=== PATIENT | male | born 1960 | race Caucasian/White ===

== ENCOUNTER 2020-11-04 12:03 | Inpatient (IN) | payer BC ==
[2020-11-04 13:18] LABS: Absolute Lymphocytes (CBC) 1.3 K/uL (0.7-4.9); Basophils % 0.8 % (0-1.3); Hematocrit 46.4 % (39.6-49.0); Lymphocytes % 14.2 % (15.3-44.8); MPV 8.9 fL (7.6-11.3); RBC Red Blood Cell Count 5.18 M/uL (4.33-5.43)
[2020-11-04] MEDS ORDERED: METOPROLOL TAR 50 MG TAB ONE (13:34)
[2020-11-04 13:53] LABS: Albumin 3.7 g/dL (3.4-5.0); Bilirubin Direct 0.5 mg/dL (0-0.2); Bilirubin Total 1.9 mg/dL (0.2-1.0); Magnesium 1.9 mg/dL (1.8-2.4); Potassium 4.3 mmol/L (3.5-5.1); Protein, Total 6.8 g/dL (6.4-8.2); Troponin (Emerg Dept Use Only) 0.05 ng/mL (0.0-0.045)
--- NOTE | 2020-11-04 13:57 | RAD REPORT ---
EXAM DESCRIPTION: [place] Single View11/04/2020 1:48 pm CLINICAL HISTORY: Cough COMPARISON: none FINDINGS: Upper lobe vessels are prominent indicative of pulmonary venous hypertension. Lungs appear clear of acute infiltrate. Moderate to marked cardiomegaly
--- NOTE | 2020-11-04 14:38 | ER ---
Nurse's Notes [facility] Name: Ac Jackson Age: 60 yrs Sex: Male : 1960 Arrival Date: 11/04/2020 Time: 12:07 Bed 25 Private MD: Diagnosis: Unspecified combined systolic (congestive) and diastolic (congestive) heart failure;Pulmonary Hypertension;Dyspnea, unspecified;Persistent atrial fibrillation-with RVR Presentation: 11/04 12:11 Chief complaint: Patient states: Noticed SOB when laying flat at night off/on for 2 ll1 months. Awakes him suddenly out of sleep, gasping for air. States he had a fall 2+ months ago, believes he cracked some ribs on the L side. Coronavirus screen: Client denies travel out of the [place] in the last 14 days. cough unrelated to allergies, difficulty breathing, shortness of breath, Client presents with at least one sign or symptom that may indicate coronavirus-19. Standard/surgical mask placed on the client. Ebola Screen: Patient denies travel to an Ebola-affected area in the 21 days before illness onset. Initial Sepsis Screen: Does the patient meet any 2 criteria? No. Patient's initial sepsis screen is negative. Does the patient have a suspected source of infection? Yes: Productive cough/pneumonia. Risk Assessment: Do you want to hurt yourself or someone else? Patient reports no desire to harm self or others. Onset of symptoms was September 04, 2020. 12:11 Method Of Arrival: Ambulatory ll1 12:11 Acuity: ANA CRISTINA 3 ll1 Historical: - Allergies: 12:15 PENICILLINS; ll1 - PMHx: 12:15 Hypertension; A fib; low blood sugar; ll1 - PSHx: 12:15 L total knee; cataract; ll1 - Immunization history:: Flu vaccine is not up to date. - Social history:: Smoking status: Patient reports use of chewing tobacco. Patient denies any tobacco usage or history of. - Family history:: not pertinent. - Hospitalizations: : No recent hospitalization is reported. Screenin:21 Abuse screen: Denies threats or abuse. Nutritional screening: No deficits noted. vg1 Tuberculosis screening: No symptoms or risk factors identified. Fall Risk No fall in past 12 months (0 pts). No secondary diagnosis (0 pts). IV access (20 points). Ambulatory Aid- None/Bed Rest/Nurse Assist (0 pts). Gait- Normal/Bed Rest/Wheelchair (0 pts) Mental Status- Oriented to own ability (0 pts). Total Roque Fall Scale indicates No Risk (0-24 pts). Assessment: 12:55 General: Appears in no apparent distress. comfortable, Behavior is calm, cooperative. vg1 Pain: Denies pain. Neuro: Level of Consciousness is awake, alert, obeys commands, Oriented to person, place, time, situation. Cardiovascular: Rhythm is sinus tachycardia. Respiratory: Airway is patent Respiratory effort is even, unlabored, Respiratory pattern is regular, symmetrical, Breath sounds are clear bilaterally. GI: No signs and/or symptoms were reported involving the gastrointestinal system. : No signs and/or symptoms were reported regarding the genitourinary system. EENT: No signs and/or symptoms were reported regarding the EENT system. Derm: Skin is intact, is healthy with good turgor. Musculoskeletal: Circulation, motion, and sensation intact. 15:39 Reassessment: Patient appears in no apparent distress at this time. No changes from vg1 previously documented assessment. Patient and/or family updated on plan of care and expected duration. Pain level reassessed. Patient is alert, oriented x 3, equal unlabored respirations, skin warm/dry/pink. 19:57 Reassessment: attempted to call report. vg1 Vital Signs: 12:11 BP 141 / 100; Pulse 87; Resp 17; Temp 97.3; Pulse Ox 97% on R/A; Weight 126.1 kg; ll1 Height 6 ft. 2 in. (187.96 cm); Pain 4/10; 13:20 BP 115 / 90; Pulse 120; Resp 14; Pulse Ox 96% on R/A; vg1 14:00 BP 117 / 99; Pulse 120; Resp 14; Pulse Ox 96% on R/A; vg1 15:45 BP 111 / 83; Pulse 95; Resp 16; Pulse Ox 100% on R/A; vg1 15:45 BP 119 / 86; Pulse 108; Resp 16; Pulse Ox 98% on R/A; vg1 18:00 BP 109 / 86; Pulse 92; Resp 16; Pulse Ox 98% on R/A; vg1 19:17 BP 114 / 98; Pulse 86; Resp 22; Pulse Ox 98% on R/A; vg1 12:11 Body Mass Index 35.69 (126.10 kg, 187.96 cm) ll1 ED Course: 12:07 Patient arrived in ED. ds1 12:13 Triage completed. ll1 12:15 Arm band placed on Patient placed in an exam room, on a stretcher. ll1 12:33 Holland Dsouza MD is Attending Physician. rn 12:51 Saira Parr RN is Primary Nurse. vg1 13:05 Inserted saline lock: 20 gauge in right antecubital area, using aseptic technique. vg1 Blood collected. 13:21 Patient has correct armband on for positive identification. Bed in low position. Call vg1 light in reach. Side rails up X 1. 13:48 XRAY Chest (1 view) In Process Unspecified. EDMS 13:55 X-ray completed. Portable x-ray completed in exam room. Patient tolerated procedure sw well. 14:37 Valentina Laurent MD is Hospitalizing Provider. rn 19:14 Primary Nurse role handed off by Saira Parr RN mw2 19:17 Saira Parr RN is Primary Nurse. vg1 20:19 No provider procedures requiring assistance completed. Patient admitted, IV remains in vg1 place. Administered Medications: 13:18 Drug: Metoprolol TARTRATE (Lopressor) 50 mg Route: PO; ss 14:00 Follow up: BP 117 / 99; Pulse 120 bpm; Resp 14 bpm; Pulse Ox 96% RA; Response: No vg1 adverse reaction 14:42 Drug: Metoprolol 25 mg Route: PO; vg1 15:45 Follow up: BP 111 / 83; Pulse 95 bpm; Resp 16 bpm; Pulse Ox 100% RA vg1 14:43 Drug: Lasix 40 mg Route: IVP; Site: right antecubital; vg1 15:45 Follow up: Response: No adverse reaction vg1 Intake: 15:46 PO: 230ml (Water); Total: 230ml. vg1 17:10 PO: 237ml (Soft Drink); Total: 467ml. vg1 Output: 14:00 Urine: 400ml (Voided); Total: 400ml. vg1 15:44 Urine: 300ml (Voided); Total: 700ml. vg1 16:30 Urine: 300ml (Voided); Total: 1000ml. vg1 17:10 Urine: 300ml (Voided); Total: 1300ml. vg1 Outcome: 14:37 Decision to Hospitalize by Provider. rn 20:19 Admitted to Tele accompanied by tech, via wheelchair, room 206, with chart, Report vg1 called to DARA Bejarano 20:19 Condition: stable 20:19 Instructed on the need for admit. 20:47 Patient left the ED. vg1 Signatures: Dispatcher [employer] EDUT Irma Garcia ds1 Holland Dsouza MD MD rn Smirch, Shelby RN RN Lucy Harris MyKena mw2 Saira Parr RN RN vg1 Isaiah Coronado RN RN ll1
--- NOTE | 2020-11-04 14:39 | EDPHYS ---
Physician Documentation [facility] Name: Ac Jackson Age: 60 yrs Sex: Male : 1960 Arrival Date: 11/04/2020 Time: 12:07 Bed 25 Private MD: ED Physician Holland Dsouza HPI: 11/04 12:56 This 60 yrs old Male presents to ER via Ambulatory with complaints of rn Shortness Of Breath. 12:56 The patient has shortness of breath at rest, with light activity. Onset: The rn symptoms/episode began/occurred 2 month(s) ago. Duration: The symptoms are intermittent. The patient's shortness of breath is aggravated by exertion, light activity, supine position, talking, walking. Associated signs and symptoms: Pertinent positives: non-productive cough, Pertinent negatives: diaphoresis, fever, hemoptysis. Severity of symptoms: At their worst the symptoms were mild in the emergency department the symptoms are unchanged. The patient has not experienced similar symptoms in the past. The patient has not recently seen a physician. Historical: - Allergies: 12:15 PENICILLINS; ll1 - PMHx: 12:15 Hypertension; A fib; low blood sugar; ll1 - PSHx: 12:15 L total knee; cataract; ll1 - Immunization history:: Flu vaccine is not up to date. - Social history:: Smoking status: Patient reports use of chewing tobacco. Patient denies any tobacco usage or history of. - Family history:: not pertinent. - Hospitalizations: : No recent hospitalization is reported. ROS: 12:56 Constitutional: Negative for fever, chills, and weight loss, Eyes: Negative for injury, rn pain, redness, and discharge, Neck: Negative for injury, pain, and swelling, Cardiovascular: Negative for chest pain, palpitations, and edema, Respiratory: Negative for wheezing, and pleuritic chest pain, Abdomen/GI: Negative for abdominal pain, nausea, vomiting, diarrhea, and constipation, Back: Negative for injury and pain, MS/Extremity: Negative for injury and deformity, Skin: Negative for injury, rash, and discoloration, Neuro: Negative for headache, weakness, numbness, tingling, and seizure. 12:58 All other systems are negative. rn Exam: 12:56 Constitutional: This is a well developed, well nourished patient who is awake, alert, rn and in no acute distress. Head/Face: Normocephalic, atraumatic. Eyes: Periorbital areas with no swelling, redness, or edema. Cardiovascular: Irregular rhythm,tachycardic. No pulse deficits. Respiratory: Speaking full sentences. No increased work of breathing, no retractions or nasal flaring. Abdomen/GI: soft, non-tender Skin: Warm, dry with normal turgor. Normal color with no rashes, no lesions, and no evidence of cellulitis. MS/ Extremity: Pulses equal, no cyanosis. Neurovascular intact. Full, normal range of motion. Equal circumference. Neuro: Awake and alert, GCS 15, oriented to person, place, time, and situation. Cranial nerves II-XII grossly intact. Motor strength 5/5 in all extremities. Sensory grossly intact. Cerebellar exam normal. Normal gait. 16:14 ECG was reviewed by the Attending Physician. rn Vital Signs: 12:11 BP 141 / 100; Pulse 87; Resp 17; Temp 97.3; Pulse Ox 97% on R/A; Weight 126.1 kg; ll1 Height 6 ft. 2 in. (187.96 cm); Pain 4/10; 13:20 BP 115 / 90; Pulse 120; Resp 14; Pulse Ox 96% on R/A; vg1 14:00 BP 117 / 99; Pulse 120; Resp 14; Pulse Ox 96% on R/A; vg1 15:45 BP 111 / 83; Pulse 95; Resp 16; Pulse Ox 100% on R/A; vg1 15:45 BP 119 / 86; Pulse 108; Resp 16; Pulse Ox 98% on R/A; vg1 18:00 BP 109 / 86; Pulse 92; Resp 16; Pulse Ox 98% on R/A; vg1 19:17 BP 114 / 98; Pulse 86; Resp 22; Pulse Ox 98% on R/A; vg1 12:11 Body Mass Index 35.69 (126.10 kg, 187.96 cm) ll1 MDM: 12:33 Patient medically screened. rn 14:35 Differential diagnosis: CHF, pulmonary HTN, afib with RVR. Data reviewed: vital signs, rn nurses notes, lab test result(s), EKG, radiologic studies, plain films, and as a result, I will admit patient. Counseling: I had a detailed discussion with the patient and/or guardian regarding: the historical points, exam findings, and any diagnostic results supporting the discharge/admit diagnosis, lab results, radiology results, the need for further work-up and treatment in the hospital. Admission orders: after a detailed discussion of the patient's condition and case, the admit orders are written by me. ED course: Pt with afib and RVR, cardiomegaly, elevated BNP, possible pulmonary HTN, will admit for ECHO, diuresis, and medication with cardiology and pulmonary consultation. Will admit to Dr. Laurent.. 11/04 12:42 Order name: Basic Metabolic Panel rn 11/04 12:42 Order name: CBC with Diff rn 11/04 12:42 Order name: LFT's rn 11/04 12:42 Order name: Magnesium; Complete Time: 14:15 11/04 12:42 Order name: NT PRO-BNP; Complete Time: 14:15 11/04 12:42 Order name: Troponin (emerg Dept Use Only); Complete Time: 14:15 11/04 12:42 Order name: Basic Metabolic Panel; Complete Time: 14:15 [facility] 11/04 12:42 Order name: CBC with Automated Diff; Complete Time: 14:15 [facility] 11/04 12:42 Order name: Liver (Hepatic) Function; Complete Time: 14:15 [facility] 11/04 15:39 Order name: SARS-COV-[address] [facility] 11/04 15:50 Order name: CBC with Automated Diff [facility] 11/04 15:50 Order name: CBC with Automated Diff [facility] 11/04 15:50 Order name: Comprehensive Metabolic Panel [facility] 11/04 12:42 Order name: XRAY Chest (1 view); Complete Time: 14:15 rn 11/04 12:42 Order name: EKG; Complete Time: 12:43 rn 11/04 12:42 Order name: Cardiac monitoring; Complete Time: 13:10 rn 11/04 15:50 Order name: CONS Physician Consult [facility] 11/04 15:50 Order name: Heart Healthy [facility] 11/04 15:50 Order name: Echo with Doppler [facility] 11/04 15:50 Order name: Comprehensive Metabolic Panel [facility] 11/04 15:50 Order name: Magnesium [facility] 11/04 15:50 Order name: Magnesium [facility] 11/04 15:50 Order name: NT PRO-BNP [facility] 11/04 15:50 Order name: NT PRO-BNP [facility] 11/04 15:50 Order name: Phosphorus [facility] 11/04 15:50 Order name: Phosphorus [facility] 11/04 12:42 Order name: EKG - Nurse/Tech; Complete Time: 13:10 rn 11/04 12:42 Order name: IV Saline Lock; Complete Time: 13:10 rn 11/04 12:42 Order name: Labs collected and sent; Complete Time: 13:10 rn 11/04 12:42 Order name: O2 Per Protocol; Complete Time: 12:53 rn 11/04 12:42 Order name: O2 Sat Monitoring; Complete Time: 12:53 rn EC:14 Rate is 127 beats/min. Rhythm is irregularly irregular. QRS Ralls is Normal. OH interval rn is normal. QRS interval is normal. QT interval is normal. No Q waves. T waves are Normal. No ST changes noted. Clinical impression: Atrial Fibrillation. Interpreted by me. Reviewed by me. Administered Medications: 13:18 Drug: Metoprolol TARTRATE (Lopressor) 50 mg Route: PO; ss 14:00 Follow up: BP 117 / 99; Pulse 120 bpm; Resp 14 bpm; Pulse Ox 96% RA; Response: No vg1 adverse reaction 14:42 Drug: Metoprolol 25 mg Route: PO; vg1 15:45 Follow up: BP 111 / 83; Pulse 95 bpm; Resp 16 bpm; Pulse Ox 100% RA vg1 14:43 Drug: Lasix 40 mg Route: IVP; Site: right antecubital; vg1 15:45 Follow up: Response: No adverse reaction vg1 Disposition: 11/04/20 14:37 Hospitalization ordered by Valentina Laurent for Inpatient Admission. Preliminary diagnosis are Unspecified combined systolic (congestive) and diastolic (congestive) heart failure, Pulmonary Hypertension, Dyspnea, unspecified, Persistent atrial fibrillation - with RVR. - Bed requested for Telemetry/MedSurg (Inpatient). - Status is Inpatient Admission. vg1 - Condition is Stable. - Problem is an ongoing problem. - Symptoms have improved. Signatures: Dispatcher [employer] [facility] Freda Fernandez Roman, MD MD rn Smirch, Shelby, RN RN Saira Parr RN RN vg1 Cliff, Lynsay, RN RN ll1 Corrections: (The following items were deleted from the chart) 13:13 12:56 Constitutional: This is a well developed, well nourished patient who is awake, rn alert, and in no acute distress. Head/Face: Normocephalic, atraumatic. Eyes: Periorbital areas with no swelling, redness, or edema. Cardiovascular: Irregular rhythm, regular rate. No pulse deficits. Respiratory: Speaking full sentences. No increased work of breathing, no retractions or nasal flaring. Abdomen/GI: soft, non-tender Skin: Warm, dry with normal turgor. Normal color with no rashes, no lesions, and no evidence of cellulitis. MS/ Extremity: Pulses equal, no cyanosis. Neurovascular intact. Full, normal range of motion. Equal circumference. Neuro: Awake and alert, GCS 15, oriented to person, place, time, and situation. Cranial nerves II-XII grossly intact. Motor strength 5/5 in all extremities. Sensory grossly intact. Cerebellar exam normal. Normal gait. rn 14:56 12:44 CORONAVIRUS+MR.LAB.BRZ ordered. EDHI EDMS 18:55 14:37 Hospitalization Ordered by Valentina Laurent MD for Inpatient Admission. Preliminary bd diagnosis is Unspecified combined systolic (congestive) and diastolic (congestive) heart failure; Pulmonary Hypertension; Dyspnea, unspecified; Persistent atrial fibrillation - with RVR. Bed requested for Telemetry/MedSurg (Inpatient). Status is Inpatient Admission. Condition is Stable. Problem is an ongoing problem. Symptoms have improved. rn 20:47 18:55 11/04/2020 14:37 Hospitalization Ordered by Valentina Laurent MD for Inpatient vg1 Admission. Preliminary diagnosis is Unspecified combined systolic (congestive) and diastolic (congestive) heart failure; Pulmonary Hypertension; Dyspnea, unspecified; Persistent atrial fibrillation - with RVR. Bed requested for Telemetry/MedSurg (Inpatient). Status is Inpatient Admission. Condition is Stable. Problem is an ongoing problem. Symptoms have improved. bd
[2020-11-04] MEDS ORDERED: METOPROLOL TAR 25 MG TAB ONE (14:54)
[2020-11-04] MEDS ORDERED: FUROSEMIDE 40 MG/4 ML VIAL ONE (14:54)
[2020-11-04] MEDS ORDERED: ONDANSETRON 4 MG/2 ML VIAL IV PRN (15:40)
[2020-11-04] MEDS ORDERED: ACETAMINOPHEN 500 MG TAB PO PRN (15:40)
[2020-11-04] MEDS: ENOXAPARIN 40 MG/0.4 ML SQ SCH (17:00)
[2020-11-04] MEDS: FUROSEMIDE 20 MG/ 2ML VIAL IV SCH (17:00)
[2020-11-04] MEDS: METOPROLOL TAR 50 MG TAB PO SCH ×2 (21:00→23:24)
[2020-11-04 22:13] VITALS: BMI 34.9
[2020-11-05] MEDS: FUROSEMIDE 20 MG/ 2ML VIAL IV SCH ×3 (00:37→17:04)
[2020-11-05 06:16] LABS: Absolute Lymphocytes (CBC) 1.5 K/uL (0.7-4.9); Basophils % 0.9 % (0-1.3); Hematocrit 46.1 % (39.6-49.0); Lymphocytes % 18.5 % (15.3-44.8); MPV 9.3 fL (7.6-11.3)
[2020-11-05 06:24] LABS: Albumin 3.6 g/dL (3.4-5.0); Bilirubin Total 1.7 mg/dL (0.2-1.0); Magnesium 1.8 mg/dL (1.8-2.4); Phosphorus 3.1 mg/dL (2.5-4.9); Potassium 4.2 mmol/L (3.5-5.1); Protein, Total 6.6 g/dL (6.4-8.2)
[2020-11-05] MEDS: lisinopriL 10 MG TAB PO SCH (09:00)
[2020-11-05] MEDS: ASPIRIN EC 81 MG TAB PO SCH (09:24)
[2020-11-05] MEDS: POTASSIUM 25 MEQ EFFERV TAB PO SCH (09:24)
[2020-11-05] MEDS: ENOXAPARIN 40 MG/0.4 ML SQ SCH (09:24)
[2020-11-05] MEDS: CLOPIDOGREL 75 MG TABLET PO SCH (09:24)
[2020-11-05] MEDS: METOPROLOL TAR 50 MG TAB PO SCH ×2 (09:24→20:41)
--- NOTE | 2020-11-05 10:07 | CON ---
Date of Consultation: 11/05/2020 Reason For Consultation: Congestive heart failure. History Of Present Illness: Mr. Jackson is a 60-year-old white male, has had a history of hypertensio n as well as paroxysmal atrial fibrillation. He does take Eliquis. He lives in [place]. 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 He came in with a month worth of PND, orthopnea, pedal edema. No chest pain, nausea, vomiting, diaphoresis. He denied any palpitations. Denied any syncope. Denied any fe griselda or chills. Past Medical History: As stated above. Allergies: TO PENICILLIN. Medications: At home include Eliquis. Review of Systems: Negative. Social History: Negative. Family History: Negative. Physical Examination: General: Today he is feeling much better after diuresis. He is in normal sinus rhythm. He is afebr ile. HEENT: Negative. Neck: Supple with no bruit, lymphadenopathy, JVD, or thyromegaly. Chest: Reveals some rales at both bases. Cardiac: Revealed a regular rhythm and rate with a tricuspid regurgitation murmur. No gallops or ru bs. Abdomen: Benign. Extremities: Revealed trace edema. Diagnostic Data: Troponin 0.05. His BNP was 3552. Chest x-ray showed cardiomegaly with pulmonary v enous congestion. Impression And Plan: The patient with history of hypertension, paroxysmal atrial fibrillation, new o nset congestive heart failure, cardiomegaly on x-ray and pulmonary venous congestion. I am afraid he may have an acute systolic congestive heart failure. The troponin elevation and BNP elevation are r elated to that. This is not an acute coronary syndrome. Nevertheless, I think we need to continue h is medication which include lisinopril, metoprolol, Plavix, aspirin, Lovenox, and Lasix. Echocardiog molly is pending. We will see what that shows before making further decisions. ALEXSANDRA/BEATRIZ Voice ID: [id number] Report ID: [id number]
[2020-11-06] MEDS: FUROSEMIDE 20 MG/ 2ML VIAL IV SCH ×3 (00:19→16:48)
--- NOTE | 2020-11-06 07:05 | EKG ---
Test Date: 2020-11-04 Test Time: 12:00:32 Security Sales Manager: LISE MEASUREMENT RESULTS: Intervals: Rate: 127 AK: QRSD: 92 QT: 324 QTc: 470 [place]: P: AK: QRS: 33 T: 73 INTERPRETIVE STATEMENTS: Atrial fibrillation with rapid ventricular response Nonspecific T wave abnormality, probably digitalis effect Abnormal ECG No previous ECG available for comparison Electronically Signed On 11-06-20 07:02:42 CDT by Meño Morgan
[2020-11-06] MEDS: lisinopriL 10 MG TAB PO SCH (09:00)
[2020-11-06] MEDS: ENOXAPARIN 40 MG/0.4 ML SQ SCH (09:40)
[2020-11-06] MEDS: POTASSIUM 25 MEQ EFFERV TAB PO SCH (09:41)
[2020-11-06] MEDS: ASPIRIN EC 81 MG TAB PO SCH (09:44)
[2020-11-06] MEDS: CLOPIDOGREL 75 MG TABLET PO SCH (09:44)
[2020-11-06] MEDS: METOPROLOL TAR 50 MG TAB PO SCH (09:58)
[2020-11-06 10:55] VITALS: O2SAT 96
--- NOTE | 2020-11-06 11:24 | ECHO ---
HEIGHT: 6 ft 2 in WEIGHT: 272 lb 8 oz DATE OF STUDY: 11/06/[address]: Valentina Laurent MD 2-DIMENSIONAL: YES M.MODE: YES DOPPLER: YES COLOR FLOW: YES TDS: NO PORTABLE: NO DEFINITY: NO BUBBLE STUDY: NO DIAGNOSIS: CONGESTIVE HEART FAILURE CARDIAC HISTORY: CATHERIZATION: NO SURGERY: NO PROSTHETIC VALVE: NO PACEMAKER: NO MEASUREMENTS (cm) DIASTOLIC (NORMALS) SYSTOLIC (NORMALS) IVSd 1.3 (0.6-1.2) LA Diam 3.9 (1.9-4.0) LVEF 30-35% LVIDd 6.7 (3.5-5.7) LVIDs 5.5 (2.0-3.5) %FS 18% LVPWd 1.4 (0.6-1.2) Ao Diam 3.5 (2.0-3.7) 2 DIMENSIONAL ASSESSMENT: RIGHT ATRIUM: NORMAL LEFT ATRIUM: NORMAL RIGHT VENTRICLE: NORMAL LEFT VENTRICLE: DILATED TRICUSPID VALVE: NORMAL MITRAL VALVE: NORMAL PULMONIC VALVE: NORMAL AORTIC VALVE: NORMAL PERICARDIAL EFFUSION: NONE AORTIC ROOT: NORMAL LEFT VENTRICULAR WALL MOTION: SEVERE GLOBAL HYPOKINESIS. DOPPLER/COLOR FLOW: MILD MITRAL AND TRICUSPID REGURGITATION. COMMENTS: MILD MITRAL AND TRICUSPID REGURGITATION. SEVERE GLOBAL HYPOKINESIS. LEFT VENTRICULAR EJECTION FRACTION 30-35%. LEFT VENTRICULAR DILATATION. TECHNOLOGIST: Iesha CALL
[2020-11-06 16:09] VITALS: BP 124/73; TEMP 97.7
--- NOTE | 2020-11-07 11:25 | PN ---
Date of Progress Note: 11/06/2020 The patient had came in with congestive heart failure that has improved with IV diuretic and low-dose beta ginger even Lovenox. Echocardiogram, however, that was done yesterday, showed severe cardiomy opathy with ejection fraction of 30% to 35%, left ventricular dilatation. The case was discussed wit aura Laurent. I think patient should be on aspirin, he should on Lasix, he should be on carvedilol, he should be on Entresto. We should definitely do an outpatient cardiac workup on him including stress test and maybe a heart catheterization make sure he come and see me in the office next we ek. ALEXSANDRA/BEATRIZ Voice ID: [id number] Report ID: [id number]
--- NOTE | 2020-11-12 04:49 | P.HP ---
Certification for Inpatient Patient admitted to: Inpatient With expected LOS: >2 Midnights Patient will require the following post-hospital care: None Practitioner: I am a practitioner with admitting privileges, knowledge of patient current condition, hospital course, and medical plan of care. Services: Services provided to patient in accordance with Admission requirements found in Title 42 Section 412.3 of the Code of Federal Regulations Patient History Date of Service: 11/04/20 Reason for admission: Acute congestive heart failure exacerbation History of Present Illness: Patient is a 60-year-old gentlemen who came into the hospital with shortness of breath. Patient was here from out of town working at the [employer] and he has been feeling short of breath. He decided to come into the emergency room for further evaluation. In the emergency room his chest x-ray revealed pulmonary edema. This is concerning for congestive heart failure. Patient has orthopnea, PND, and dyspnea on exertion. Patient will be admitted to the hospital for further evaluation. Allergies Penicillins Allergy (Verified 11/05/20 09:20) Shortness of breath Home Medications: Apixaban [Eliquis] 5 mg PO BID 11/04/20 Atorvastatin Calcium [Lipitor] 80 mg PO DAILY 11/04/20 Brimonidine Tartrate/Timolol [Combigan 0.2%-0.5% Eye Drops] 0.2 drop LEFT EYE BID 11/04/20 Cholecalciferol (Vitamin D3) [Vitamin D3] 1,000 unit PO DAILY 11/04/20 Hydrocodone Bit/Acetaminophen [Hydrocodon-Acetaminophn 10-325] 1 tab PO PRN PRN 11/04/20 Losartan Potassium 100 mg PO DAILY 11/04/20 Aspirin [Aspirin EC 81 MG] 81 mg PO DAILY #30 tablet.dr 11/06/20 Clopidogrel Bisulfate [Plavix*] 75 mg PO DAILY #30 tablet 11/06/20 Furosemide [Lasix] 40 mg PO BIDL #60 tab 11/06/20 Metoprolol Tartrate [Lopressor*] 25 mg PO BID #60 tab 11/06/20 Potassium Chloride [K-Dur] 10 meq PO DAILY #30 tab.er.prt 11/06/20 Sacubitril/Valsartan [Entresto 24 mg-26 mg Tablet] 1 tab PO BID #60 tab 11/06/20 Spironolactone [Aldactone] 25 mg PO DAILY #30 tab 11/06/20 - Past Medical/Surgical History Has patient received pneumonia vaccine in the past: No -: Coronary artery disease -: Hypertension -: atrial fibrillation Past Surgical History: Patient denies surgical history - Family History Father Family History: Reviewed- Non-Contributory - Social History Smoking Status: Never smoker Alcohol use: No CD- Drugs: No Place of Residence: Home Review of Systems 10-point ROS is otherwise unremarkable Physical Examination - Vital Signs Temperature: 97.7 F Blood Pressure: 124/73 Pulse: 88 Respirations: 16 Pulse Ox (%): 96 - Physical Exam General: Alert, In no apparent distress, Oriented x3 HEENT: Atraumatic, PERRLA, Mucous membr. moist/pink, EOMI, Sclerae nonicteric Neck: Supple, 2+ carotid pulse no bruit, No LAD, Without JVD or thyroid abnormality Respiratory: Clear to auscultation bilaterally, Normal air movement Cardiovascular: Regular rate/rhythm, Normal S1 S2 Gastrointestinal: Normal bowel sounds, Soft and benign, Non-distended, No tenderness Musculoskeletal: No clubbing, No swelling, No tenderness Integumentary: No rashes Neurological: Normal gait, Normal speech, Normal strength at 5/5 x4 extr, Normal tone, Sensation intact, Cranial nerves 3-12 intact, Normal affect Lymphatics: No axilla or inguinal lymphadenopathy Assessment & Plan - Problems (Diagnosis) (1) Acute exacerbation of CHF (congestive heart failure) Status: Acute (2) Atrial fibrillation with RVR Status: Acute - Plan Plan: - Echocardiogram if it has not been performed in the last 6 months - We will start patient on an SARA inhibitor or an ARB - We will start patient on a Beta ginger - Cardiology consultation - Aggressive diuresis - Strict I's and O's - Repeat CXR - Daily weights - Education regarding diet and treatment of congestive heart failure Discharge Plan: Home Plan to discharge in: Greater than 2 days - Advance Directives Does patient have a Living Will: No Does patient have a Durable POA for Healthcare: No - Code Status/Comfort Care Code Status Assessed: Yes Code Status: Full Code Critical Care: No Time Spent Managing PTS Care (In Minutes): 45
--- NOTE | 2020-11-12 04:53 | P.PN ---
Subjective Date of Service: 11/05/20 Subjective: Improving Patient doing well after diuresing. Echocardiogram revealed that patient's ejection fraction was low. Patient will be admitted and educated regarding congestive heart failure. Review of Systems 10-point ROS is otherwise unremarkable Physical Examination - Vital Signs Temperature: 97.7 F Blood Pressure: 124/73 Pulse: 88 Respirations: 16 Pulse Ox (%): 96 - Physical Exam General: Alert, In no apparent distress, Oriented x3 Respiratory: Clear to auscultation bilaterally, Normal air movement Cardiovascular: Regular rate/rhythm, Normal S1 S2, No murmurs Gastrointestinal: Normal bowel sounds, Soft and benign, Non-distended, No tenderness Musculoskeletal: No tenderness Neurological: Normal speech, Normal strength at 5/5 x4 extr - Studies Medications List Reviewed: Yes Assessment & Plan - Problems (Diagnosis) (1) Acute exacerbation of CHF (congestive heart failure) Status: Acute (2) Atrial fibrillation with RVR Status: Acute - Plan Plan: - Echocardiogram Revealed ejection fraction of 30-35%. Patient will need aggressive cardiac monitoring - Continue with SARA inhibitor - Continue Beta ginger Therapy - Cardiology consultation Appreciated - Aggressive diuresis - Strict I's and O's - Repeat CXR - Daily weights - Education regarding diet and treatment of congestive heart failure Discharge Plan: Home Plan to discharge in: Greater than 2 days - Advance Directives Does patient have a Living Will: No Does patient have a Durable POA for Healthcare: No - Code Status/Comfort Care Code Status: Full Code Critical Care: No Time Spent Managing PTS Care (In Minutes): 35
--- NOTE | 2020-11-12 04:55 | P.DS ---
Discharge Date: 11/06/20 Disposition: ROUTINE DISCHARGE Discharge Condition: GOOD Reason for Admission: Acute congestive heart failure exacerbation Consultations: Cardiology - Problems (1) Acute exacerbation of CHF (congestive heart failure) Status: Acute (2) Atrial fibrillation with RVR Status: Acute Brief History of Present Illness: Patient is a 60-year-old gentlemen who came into the hospital with shortness of breath. Patient was here from out of town working at the [employer] and he has been feeling short of breath. He decided to come into the emergency room for further evaluation. In the emergency room his chest x-ray revealed pulmonary edema. This is concerning for congestive heart failure. Patient has orthopnea, PND, and dy spnea on exertion. Patient will be admitted to the hospital for further evaluation. Hospital Course: Patient was diuresed effectively. Patient was started on medication for congestive heart failure. At this time, patient is stable for discharge and will need close outpatient follow with cardiology. Patient may need pacemaker defibrillator if cardiac function worsening. Patient needs to be evaluated for ischemic cardiomyopathy as well. This will be done as an outpatient. Vital Signs/Physical Exam: Temp Pulse Resp BP Pulse Ox 97.7 F 88 16 124/73 96 11/12/20 04:52 11/12/20 04:52 11/12/20 04:52 11/12/20 04:52 11/12/20 04:52 General: Alert, In no apparent distress, Oriented x3 Laboratory Data at Discharge: WBC 8.30 K/uL (4.3-10.9) 11/05/20 05:41 Hgb 15.3 g/dL (13.6-17.9) 11/05/20 05:41 Hct 46.1 % (39.6-49.0) 11/05/20 05:41 Plt Count 198 K/uL (152-406) 11/05/20 05:41 Sodium 143 mmol/L (136-145) 11/05/20 05:41 Potassium 4.2 mmol/L (3.5-5.1) 11/05/20 05:41 BUN 28 mg/dL (7-18) H 11/05/20 05:41 Creatinine 1.28 mg/dL (0.55-1.3) 11/05/20 05:41 Glucose 96 mg/dL (74-106) 11/05/20 05:41 Phosphorus 3.1 mg/dL (2.5-4.9) 11/05/20 05:41 Magnesium 1.8 mg/dL (1.8-2.4) 11/05/20 05:41 Total Bilirubin 1.7 mg/dL (0.2-1.0) H 11/05/20 05:41 AST 30 U/L (15-37) 11/05/20 05:41 ALT 53 U/L (12-78) 11/05/20 05:41 Alkaline Phosphatase 75 U/L (45-117) 11/05/20 05:41 Home Medications: Apixaban [Eliquis] 5 mg PO BID 11/04/20 Atorvastatin Calcium [Lipitor] 80 mg PO DAILY 11/04/20 Brimonidine Tartrate/Timolol [Combigan 0.2%-0.5% Eye Drops] 0.2 drop LEFT EYE BID 11/04/20 Cholecalciferol (Vitamin D3) [Vitamin D3] 1,000 unit PO DAILY 11/04/20 Hydrocodone Bit/Acetaminophen [Hydrocodon-Acetaminophn 10-325] 1 tab PO PRN PRN 11/04/20 Losartan Potassium 100 mg PO DAILY 11/04/20 Aspirin [Aspirin EC 81 MG] 81 mg PO DAILY #30 tablet. 11/06/20 Clopidogrel Bisulfate [Plavix*] 75 mg PO DAILY #30 tablet 11/06/20 Furosemide [Lasix] 40 mg PO BIDL #60 tab 11/06/20 Metoprolol Tartrate [Lopressor*] 25 mg PO BID #60 tab 11/06/20 Potassium Chloride [K-Dur] 10 meq PO DAILY #30 tab.er.prt 11/06/20 Sacubitril/Valsartan [Entresto 24 mg-26 mg Tablet] 1 tab PO BID #60 tab 11/06/20 Spironolactone [Aldactone] 25 mg PO DAILY #30 tab 11/06/20 New Medications: Spironolactone [Aldactone] 25 mg PO DAILY #30 tab Aspirin [Aspirin EC 81 MG] 81 mg PO DAILY #30 tablet. Sacubitril/Valsartan [Entresto 24 mg-26 mg Tablet] 1 tab PO BID #60 tab Potassium Chloride [K-Dur] 10 meq PO DAILY #30 tab.er.prt Furosemide [Lasix] 40 mg PO BIDL #60 tab Metoprolol Tartrate [Lopressor*] 25 mg PO BID #60 tab Clopidogrel Bisulfate [Plavix*] 75 mg PO DAILY #30 tablet Physician Discharge Instructions: OK TO DC IV AND DC HOME FOLLOW-UP WITH PRIMARY CARE PROVIDER IN 1-2 WEEKS FOLLOW-UP WITH CARDIOLOGY IN 1-2 WEEKS RETURN TO THE ER IF symptoms worsen CALL or TEXT DR. YIN AT [phone] IF ANY QUESTIONS REGARDING HOSPITAL STAY. PLEASE CALL THE FLOOR AT [phone] IF ANY MEDICATION OR NURSING QUESTIONS. Diet: Low sodium Activity: Fall precautions Followup: Meño Morgan MD [ACTIVE - CAN ADMIT] - OOT,OOT [Primary Care Provider] - Time spent managing pt's care (in minutes): 35
== END 2020-11-06 17:39 | disposition home or self-care (01) | DRG 293 ==
LOC: ER 12:03 → ERHOLD 15:41 → 2ND 20:42
PROVIDERS: ADMIT Hospitalist; ATTEND Hospitalist
DX: I11.0 Hypertensive heart disease with heart failure (principal); I50.23 Acute on chronic systolic (congestive) heart failure; I48.0 Paroxysmal atrial fibrillation; I25.10 Atherosclerotic heart disease of native coronary artery without angina pectoris; I25.5 Ischemic cardiomyopathy; F17.220 Nicotine dependence, chewing tobacco, uncomplicated; Z88.5 Allergy status to narcotic agent; Z79.01 Long term (current) use of anticoagulants; Z88.0 Allergy status to penicillin; Z79.82 Long term (current) use of aspirin; Z79.02 Long term (current) use of antithrombotics/antiplatelets; Z79.899 Other long term (current) drug therapy; Z20.822 Contact with and (suspected) exposure to COVID-19
CPT/HCPCS: 36415; 71045; 80048; 80053; 80076; 83735; 83880; 84100; 84484; 85025; 93005; 93306; 96374; 99285; J1650; J1940; U0003